=== PATIENT | female | born 1945 | race Two or more races ===

== ENCOUNTER 2018-09-01 13:43 | Outpatient (CLI) | payer OTHER ==
[~2018-09-01 13:43] MED LIST: CELEBREX100 MG PO; CELEBREX50 MG; FOSAMAX70 MG PO; LOVASTATIN40 MG PO; PRILOSEC2.5 MG; PRILOSEC40 MG; SYNTHROID50 MCG PO; TRAMADOL HCL-AP1 TAB PO; TYLENOL32 MG/ML PO; [UNRECOGNIZED DRUG - OTHER] PO
== END 2018-09-01 13:52 | disposition home or self-care (01) ==
LOC: RAD 501 13:43
DX: M17.0 Bilateral primary osteoarthritis of knee (principal)

== ENCOUNTER → 2019-01-26 | Outpatient (CLI) | payer OTHER | END | disposition home or self-care (01) | LOC: NUCLEAR 13:29 | DX: M81.0 Age-related osteoporosis without current pathological fracture (principal) ==

== ENCOUNTER 2019-09-09 12:29 | Outpatient (CLI) | payer OTHER | END 2019-09-09 12:31 | disposition home or self-care (01) | LOC: RAD 12:29 | DX: M17.0 Bilateral primary osteoarthritis of knee (principal) ==

== ENCOUNTER 2020-05-01 13:49 | Outpatient (CLI) | payer OTHER | END 2020-05-01 13:57 | disposition home or self-care (01) | LOC: MAMO-SONO 13:49 | PROVIDERS: ATTEND Obstetrics & Gynecology | DX: Z12.31 Encounter for screening mammogram for malignant neoplasm of breast (principal); N60.11 Diffuse cystic mastopathy of right breast; N60.12 Diffuse cystic mastopathy of left breast ==

== ENCOUNTER → 2020-08-23 | Outpatient (CLI) | payer OTHER | END | disposition home or self-care (01) | LOC: SONOGRAMA 12:44 → MAMO-SONO 13:15 | PROVIDERS: ATTEND Internal Medicine Rheumatology | DX: M25.512 Pain in left shoulder (principal) ==

== ENCOUNTER 2020-09-22 15:06 | Outpatient (CLI) | payer OTHER | END 2020-09-22 15:09 | disposition home or self-care (01) | LOC: RAD 15:06 | PROVIDERS: ATTEND Physical Medicine & Rehabilitation | DX: M25.78 Osteophyte, vertebrae (principal); M54.2 Cervicalgia ==

== ENCOUNTER 2020-10-18 13:52 | Outpatient (CLI) | payer OTHER | END 2020-10-18 13:54 | disposition home or self-care (01) | LOC: RAD 13:52 | PROVIDERS: ATTEND Physical Medicine & Rehabilitation | DX: M17.0 Bilateral primary osteoarthritis of knee (principal) ==

== ENCOUNTER 2021-01-11 08:39 | Outpatient (CLI) | payer OTHER | END 2021-01-11 08:41 | disposition home or self-care (01) | LOC: MAMO-SONO 08:39 → NUCLEAR 08:39 → MAMO-SONO 08:41 | PROVIDERS: ATTEND Physical Medicine & Rehabilitation | DX: M81.0 Age-related osteoporosis without current pathological fracture (principal) ==

== ENCOUNTER 2021-05-02 12:38 | Outpatient (CLI) | payer OTHER | END 2021-05-02 12:41 | disposition home or self-care (01) | LOC: MAMO-SONO 12:38 | PROVIDERS: ATTEND Obstetrics & Gynecology | DX: N60.11 Diffuse cystic mastopathy of right breast (principal); N60.12 Diffuse cystic mastopathy of left breast; Z12.31 Encounter for screening mammogram for malignant neoplasm of breast ==

== ENCOUNTER 2021-10-17 10:05 | Outpatient (CLI) | payer OTHER | END 2021-10-17 10:22 | disposition home or self-care (01) | LOC: TOM 10:05 | PROVIDERS: ATTEND Internal Medicine Gastroenterology | DX: R10.84 Generalized abdominal pain (principal) ==

== ENCOUNTER 2021-12-05 15:18 | Outpatient (CLI) | payer OTHER | END 2021-12-05 15:24 | disposition home or self-care (01) | LOC: RAD 15:18 | PROVIDERS: ATTEND Physical Medicine & Rehabilitation | DX: M17.11 Unilateral primary osteoarthritis, right knee (principal); M17.12 Unilateral primary osteoarthritis, left knee ==

== ENCOUNTER 2022-05-28 13:40 | Outpatient (CLI) | payer OTHER | END 2022-05-28 13:46 | disposition home or self-care (01) | LOC: MAMO-SONO 13:40 | PROVIDERS: ATTEND Obstetrics & Gynecology | DX: Z12.31 Encounter for screening mammogram for malignant neoplasm of breast (principal); N60.11 Diffuse cystic mastopathy of right breast; N60.12 Diffuse cystic mastopathy of left breast ==

== ENCOUNTER 2022-07-24 12:19 | Outpatient (CLI) | payer OTHER | END 2022-07-24 12:38 | disposition home or self-care (01) | LOC: TOM 12:19 | PROVIDERS: ATTEND Urology | DX: N20.0 Calculus of kidney (principal); N39.0 Urinary tract infection, site not specified; R31.1 Benign essential microscopic hematuria; R33.9 Retention of urine, unspecified ==

== ENCOUNTER 2023-01-01 12:30 | Outpatient (CLI) | payer OTHER | END 2023-01-01 12:36 | disposition home or self-care (01) | LOC: RAD 12:30 | PROVIDERS: ATTEND Physical Medicine & Rehabilitation | DX: M17.0 Bilateral primary osteoarthritis of knee (principal) ==

== ENCOUNTER 2023-02-24 12:15 | Emergency (ER) | payer OTHER ==
[~2023-02-24] VITALS: Ht 167.6 cm; Wt 74.4 kg
== END 2023-02-24 16:47 | disposition home or self-care (01) ==
LOC: ER 12:15
DX: R20.2 Paresthesia of skin (principal); E78.00 Pure hypercholesterolemia, unspecified; Z85.3 Personal history of malignant neoplasm of breast; H35.50 Unspecified hereditary retinal dystrophy; Z88.8 Allergy status to other drugs, medicaments and biological substances; H40.89 Other specified glaucoma; Z20.822 Contact with and (suspected) exposure to COVID-19

== ENCOUNTER 2023-03-14 12:30 | Outpatient (CLI) | payer OTHER | END 2023-03-14 12:48 | disposition home or self-care (01) | LOC: SONOGRAMA 12:30 | PROVIDERS: ATTEND Internal Medicine Gastroenterology | DX: R10.84 Generalized abdominal pain (principal) ==

== ENCOUNTER 2023-03-20 13:27 | Outpatient (CLI) | payer OTHER | END 2023-03-20 13:31 | disposition home or self-care (01) | LOC: RAD 13:27 | PROVIDERS: ATTEND Orthopaedic Surgery | DX: M25.561 Pain in right knee (principal); M25.562 Pain in left knee ==

== ENCOUNTER 2023-07-23 14:09 | Outpatient (CLI) | payer OTHER | END 2023-07-23 14:14 | disposition home or self-care (01) | LOC: MAMO-SONO 14:09 | PROVIDERS: ATTEND Orthopaedic Surgery | DX: Z12.31 Encounter for screening mammogram for malignant neoplasm of breast (principal); R07.9 Chest pain, unspecified ==

== ENCOUNTER 2023-08-08 12:15 | Inpatient (IN) | payer OTHER ==
[~2023-08-08] VITALS: Ht 167.6 cm; Wt 74.8 kg
[2023-08-08] MEDS ORDERED: CARAF PO (13:19)
[2023-08-08] MEDS ORDERED: TRAMA PO (13:19)
[2023-08-08] MEDS ORDERED: TYLENOL ARTHRI650 MG PO (13:20)
[2023-08-08] MEDS ORDERED: CALCIUM PO (13:21)
[2023-08-08] MEDS ORDERED: ALTOPREV40 MG PO (13:21)
[2023-08-08] MEDS ORDERED: VITAMIN D PO (13:22)
[2023-08-08] MEDS ORDERED: PEPCID AC20 MG PO (13:22)
[2023-08-08] MEDS ORDERED: CIDAFLEX TABLE1 EACH PO (13:23)
[2023-08-08] MEDS ORDERED: CLONAZEPAM0.5 MG PO (13:23)
[2023-08-13 07:30] LABS: HEMATOCRIT 28.8 % (36.0-45.00); HEMOGLOBIN 9.9 g/dL (12.0-15.00); MEAN CELL VOLUME 98.6 fL (80.00-100.00); MEAN CORPUSCULAR HEMOGLOBIN 33.9 pg (27.00-32.0); MEAN CORPUSCULAR HGB CONC 34.4 g/dl (32.0-36.0); PLATELET COUNT 184 K/uL (150-450); RED BLOOD COUNT 2.92 M/uL (4.00-6.00); RED CELL DISTRIBUTION WIDTH 13.6 % (11.5-14.5)
[2023-08-13] MEDS ORDERED: TRAMADOL HCL50 MG (09:14)
[2023-08-13] MEDS ORDERED: SUCRALFATE1 GM (09:18)
[2023-08-13] MEDS ORDERED: CELECOXIB200 MG (09:19)
[2023-08-13] MEDS ORDERED: DORZOLAMIDE-TIM10 ML (09:19)
[2023-08-13] MEDS ORDERED: DICYCLOMINE HCL20 MG (09:19)
[2023-08-13] MEDS ORDERED: FENOFIBRATE160 MG (09:19)
[2023-08-13] MEDS ORDERED: PILOCARPINE HCL15 M4 (09:19)
[2023-08-13] MEDS ORDERED: FAMOTIDINE40 MG (09:19)
[2023-08-13] MEDS ORDERED: ACID REDUCER20 M1 (09:20)
[2023-08-13] MEDS ORDERED: VITAMIN D310 MC5 (09:21)
[2023-08-13] MEDS ORDERED: CALCIUM500 M1 (09:22)
[2023-08-14 06:38] LABS: HEMATOCRIT 26.8 % (36.0-45.00); HEMOGLOBIN 9.3 g/dL (12.0-15.00); MEAN CELL VOLUME 98.2 fL (80.00-100.00); MEAN CORPUSCULAR HEMOGLOBIN 34.2 pg (27.00-32.0); MEAN CORPUSCULAR HGB CONC 34.8 g/dl (32.0-36.0); PLATELET COUNT 174 K/uL (150-450); RED BLOOD COUNT 2.72 M/uL (4.00-6.00); RED CELL DISTRIBUTION WIDTH 13.5 % (11.5-14.5)
== END 2023-08-14 15:49 | disposition home or self-care (01) | DRG 470 ==
LOC: SURG 08-12 07:00 → O/R 08-12 07:50 → SURG 08-12 12:30
PROVIDERS: ADMIT Orthopaedic Surgery; ATTEND Orthopaedic Surgery
PROC: 0SRD0JZ Replacement of Left Knee Joint with Synthetic Substitute, Open Approach (ICD-10-PCS; principal; 2023-08-12 07:00)
DX: M17.12 Unilateral primary osteoarthritis, left knee (principal); D62 Acute posthemorrhagic anemia; M85.662 Other cyst of bone, left lower leg

== ENCOUNTER 2023-10-24 13:01 | Outpatient (CLI) | payer OTHER ==
[~2023-10-24 13:01] MED LIST changes: +ACID REDUCER20 M1; +ALTOPREV40 MG PO; +CALCIUM PO; +CALCIUM500 M1; +CARAF PO; +CELECOXIB200 MG; +CIDAFLEX TABLE1 EACH PO; +CLONAZEPAM0.5 MG PO; +DICYCLOMINE HCL20 MG; +DORZOLAMIDE-TIM10 ML; +FAMOTIDINE40 MG; +FENOFIBRATE160 MG; +PEPCID AC20 MG PO; +PILOCARPINE HCL15 M4; +SUCRALFATE1 GM; +TRAMA PO; +TRAMADOL HCL50 MG; +TYLENOL ARTHRI650 MG PO; +VITAMIN D PO; +VITAMIN D310 MC5
== END 2023-10-24 13:02 | disposition home or self-care (01) ==
LOC: NUCLEAR 13:01
PROVIDERS: ATTEND Physical Medicine & Rehabilitation
DX: M81.0 Age-related osteoporosis without current pathological fracture (principal)

== ENCOUNTER 2024-02-12 13:26 | Outpatient (CLI) | payer OTHER | END 2024-02-12 13:29 | disposition home or self-care (01) | LOC: RAD 13:26 | PROVIDERS: ATTEND Orthopaedic Surgery | DX: M25.561 Pain in right knee (principal); M25.562 Pain in left knee ==

== ENCOUNTER 2024-02-16 12:56 | Outpatient (CLI) | payer OTHER | END 2024-02-16 13:29 | disposition home or self-care (01) | LOC: RAD 12:56 | PROVIDERS: ATTEND Urology | DX: N39.0 Urinary tract infection, site not specified (principal); R31.1 Benign essential microscopic hematuria ==

== ENCOUNTER 2024-09-09 12:25 | Outpatient (CLI) | payer OTHER | END 2024-09-09 12:34 | disposition home or self-care (01) | LOC: MAMO-SONO 12:25 | PROVIDERS: ATTEND Obstetrics & Gynecology | DX: Z09 Encounter for follow-up examination after completed treatment for conditions other than malignant neoplasm (principal); D17.79 Benign lipomatous neoplasm of other sites; N39.41 Urge incontinence; A49.9 Bacterial infection, unspecified; G43.909 Migraine, unspecified, not intractable, without status migrainosus; R35.1 Nocturia; Z12.39 Encounter for other screening for malignant neoplasm of breast; H40.9 Unspecified glaucoma; R35.0 Frequency of micturition; Z12.31 Encounter for screening mammogram for malignant neoplasm of breast ==

== ENCOUNTER 2025-03-21 13:54 | Outpatient (CLI) | payer OTHER | END 2025-03-21 13:57 | disposition home or self-care (01) | LOC: TOM 13:54 | PROVIDERS: ATTEND Urology | DX: D35.02 Benign neoplasm of left adrenal gland (principal); R31.1 Benign essential microscopic hematuria; N20.0 Calculus of kidney ==

== ENCOUNTER 2025-05-03 14:48 | Outpatient (CLI) | payer OTHER | END 2025-05-03 14:52 | disposition home or self-care (01) | LOC: RAD 14:48 | PROVIDERS: ATTEND Physical Medicine & Rehabilitation | DX: M17.11 Unilateral primary osteoarthritis, right knee (principal) ==

== ENCOUNTER 2025-06-27 14:12 | Outpatient (CLI) | payer OTHER | END 2025-06-27 14:21 | disposition home or self-care (01) | LOC: MAMO-SONO 14:12 | PROVIDERS: ATTEND Obstetrics & Gynecology | DX: N63.10 Unspecified lump in the right breast, unspecified quadrant (principal); N63.20 Unspecified lump in the left breast, unspecified quadrant ==